=== PATIENT | male | born 1995 | race Caucasian/White ===

== ENCOUNTER 2017-05-01 12:10 | Day surgery (SDC) | payer SELFPAY ==
[2017-05-01 12:52] LABS: BASOPHILS 0.2 % (0-2); EOSINOPHILS 2.3 % (0-7); HEMATOCRIT 41.6 % (42.0-54.0); HEMOGLOBIN 14.5 g/dL (13.5-17.5); IMMATURE GRANULOCYTES 0.2 % (0-5); LYMPHOCYTES 30.9 % (15-50); MCH 31.3 pg (26.0-34.0); MCHC 34.9 g/dL (31.0-37.0); MCV 89.8 fL (80.0-100.0); MEAN PLATELET VOLUME 10.8 fL (7.4-10.4); NEUTROPHILS 55.4 % (40-80); PLATELET COUNT 310 10x3/uL (130-400); RBC 4.63 10x6/uL (4.20-6.10); RDW 12.9 % (11.5-14.5); WBC 9.8 10x3/uL (4.8-10.8)
[2017-05-01 12:59] LABS: INR 1.04 (0.85-1.17); PROTIME 13.4 SECONDS (11.6-15.0)
[2017-05-01 13:05] LABS: ALBUMIN 3.5 g/dL (3.4-5.0); ALKALINE PHOSPHATASE 68 U/L (46-116); ALT (SGPT) 20 U/L (10-68); BILIRUBIN - TOTAL 0.31 mg/dL (0.2-1.3); CALC OSMOLALITY 278 mosm/kg (275-300); CALCIUM 8.5 mg/dL (8.5-10.1); CARBON DIOXIDE 26.7 mmol/L (21.0-32.0); CHLORIDE - SERUM 105 mmol/L (98-107); CREATININE - SERUM 0.8 mg/dL (0.6-1.3); GLUCOSE 110 mg/dL (74-106); POTASSIUM - SERUM 3.3 mmol/L (3.5-5.1); PROTEIN - SERUM 7.1 g/dL (6.4-8.2); SODIUM 140 mmol/L (136-145); UREA NITROGEN 9 mg/dL (7-18); eGFR NON AFRICAN AMERICAN > 90 mL/min (90-120)
[2017-05-01] MEDS ORDERED: BACTRIM DS TABL1 TAB PO (15:23)
[2017-05-01] MEDS ORDERED: HYDROCODONE-APA1 TAB PO (15:23)
[2017-05-01 16:13] VITALS: BP 140/71
--- NOTE | 2017-05-01 16:15 | NUR ---
RECEIVED TO ROOM 2238 VIA STRETCHER FROM PACU. A/O X3. FAMILY AT BEDSIDE. NEURO CHECKS WNL. VSS. DENIES NEEDS.
--- NOTE | 2017-05-01 18:49 | NUR ---
DISCHARGED TO HOME AMBULATORY WITH FAMILY. DISCHARGE INSTRUCTIONS GIVEN BOTH VERBALLY AND WRITTEN. ALL QUESTIONS ANSWERED. NEEDED PRESCRIPTIONS GIVEN TO PATIENT. IV TO LEFT HAND D/C WITH CATHETER INTACT.
--- NOTE | 2017-05-28 10:59 | OP ---
PATIENT NAME: SEA LOGAN MEDICAL RECORD: [id number] :89 LOCATION:D.OPS ADMISSION DATE: SURGEON: KIKE HEARD MD DATE OF OPERATION: 05/01/2017 PREOPERATIVE DIAGNOSIS: Volar forearm laceration with multiple extensor lacerations. POSTOPERATIVE DIAGNOSIS: Volar forearm laceration with multiple extensor lacerations. PROCEDURES: 1. Serial and sequential debridement of the open wound to include skin, subcutaneous tissue, portions of fat, fascia, muscle and bone. 2. Multiple extensor tendon repair - 4. SURGEON: Kike Heard MD ANESTHESIA: General. INTRAOPERATIVE COMPLICATIONS: None. SUMMARY OF PATHOLOGIC FINDINGS: The patient had laceration of the muscle that was at the extensor communis of the long ring and index finger as well as extensor carpi radialis. These were all reanastomosed as a part of the surgery. OPERATIVE SUMMARY IN DETAIL: After obtaining the appropriate preoperative orthopedic surgery consent as well as anesthetic consultation, evaluation and clearance the patient was brought to the operating room and placed on the operating table in supine position. After general laryngeal mask airway was administered, tourniquet was placed about the proximal aspect of the right upper extremity. Right upper extremity was then prepped and draped in routine sterile fashion. Attention was first turned to cleaning out the [place] wound, relatively clean; however, the findings were that there was down to bone with bone fragmentation. This was all debrided. All nonviable and dirty-appearing tissue was debrided. Serial and sequential recognition and identification of tendons to which they belong were identified. Either end of the incision was cut with Z-plasty. First, attention was turned to the extensor carpi radialis. It was actually [id number]. This was treated with a modified Ibanez suture and oversewn with 4-0 Prolene. Next, the communis muscle belly with portions of tendon were reapproximated there again with modified Ibanez suture and oversewn with [id number] at the musculotendinous junction on all 3 of these fingers. Having completed this, the wound was closed with 2-0 Vicryl followed by skin migdalia. Before the patient was awakened, the splint was placed with the hand and fingers in full extension. Sterile dressings were applied. Tourniquet was deflated. The patient was awakened, taken to recovery room in stable condition. All final needle and sponge counts were correct. TRANSINT:[id number] Voice Confirmation ID: [id number] DOCUMENT ID: [id number] OPERATIVE REPORT [id number] SEA LOGAN MD, KIKE JIN at 1059 CC: [id number] DICTATION DATE: 05/27/17 1432 T[facility] RIVETER: 05/27/[address] [facility] 05/01/17 [place] [id number]
== END 2017-05-01 18:51 | disposition home or self-care (01) ==
LOC: D.ER 12:10 → D.OPS 12:10 → EDSTATUS 13:14 → D.MS 15:17 → D.OPS 18:51
PROVIDERS: Emergency Medicine
DX: S51.811A Laceration without foreign body of right forearm, initial encounter (principal); F17.200 Nicotine dependence, unspecified, uncomplicated; W25.XXXA Contact with sharp glass, initial encounter; Z23 Encounter for immunization